=== PATIENT | female | born 2000 | race Caucasian/White ===

== ENCOUNTER 2020-05-18 16:32 | Emergency (ER) | payer OTHER ==
[~2020-05-18] VITALS: Ht 165.1 cm; Wt 81.7 kg
[2020-05-18] MEDS ORDERED: CELEXA 10 MG TA10 M1 PO (16:44)
[2020-05-18] MEDS ORDERED: IBUPROFEN 800800 M1 PO (17:41)
[2020-05-18 17:58] VITALS: BP 125/75
== END 2020-05-18 17:59 ==
LOC: M.ERS 16:32
DX: S63.592A Other specified sprain of left wrist, initial encounter (principal); X50.1XXA Overexertion from prolonged static or awkward postures, initial encounter; Y93.89 Activity, other specified; Y92.89 Other specified places as the place of occurrence of the external cause; Y99.8 Other external cause status